=== PATIENT | female | born 1950 | race Caucasian/White ===

== ENCOUNTER 2021-01-10 10:38 | Outpatient (REF) | payer MEDICARE, OTHER, SELFPAY ==
[2021-01-10 12:11] LABS: Alanine Aminotransferase 17 U/L (0-31); Anion Gap 11 (12-20); Blood Urea Nitrogen 12 mg/dL (9-16); Carbon Dioxide 30 mmol/L (22-29); Chloride 100 mmol/L (96-108); Estimated Glomerular Filt Rate > 60; Potassium 4.2 mmol/L (3.3-5.1); Sodium 137 mmol/L (135-145)
== END 2021-01-10 10:39 | disposition home or self-care (01) ==
LOC: HO.LAB 10:38
PROVIDERS: PCP Family Medicine; Visit Provider Family Medicine
DX: I10 Essential (primary) hypertension (principal); E78.00 Pure hypercholesterolemia, unspecified; Z79.899 Other long term (current) drug therapy
CPT/HCPCS: 36415; 80051; 82550; 82565; 84460; 84520

== ENCOUNTER 2021-03-23 06:55 | Day surgery (SDC) | payer MEDICARE, OTHER, SELFPAY ==
[2021-03-19 14:24] VITALS: BMI 16.9
--- NOTE | 2021-03-22 08:19 | P.CONAN_ITS ---
Documented by User: Sole Will NP 03/22/21 08:21 HPI - Anesthesia Eval Consult details Narrative: 70yo F for Colonoscopy [facility] Past Medical History Medical History Elevated cholesterol Hemorrhoids HTN (hypertension) Low back pain Surgical History Surgical History Hx of rhinoplasty Social History Social History Patient Tobacco Use Status: Former Tobacco user Quit Date: Are you DNR?: No Advance Directives: No Advance Directives Information Provided: No Advance Directives on File: No Meds Allergies Allergy/AdvReac Type Severity Reaction Status Date / Time Penicillins Allergy Hives Verified 03/19/21 14:23 Home Medications Medication Instructions Recorded Confirmed Last Taken Type atenolol 50 mg tablet 1 tab PO DAILY 03/19/21 03/19/21 03/23/21 History atorvastatin 40 mg tablet 1 tab PO DAILY 03/19/21 03/19/21 Unknown History co [id number] oil-omega 3-E 03/19/21 03/19/21 Unknown History lisinopril 10 mg tablet 15 mg PO DAILY 03/19/21 03/19/21 Unknown History Exam Exam Date and Time: March 22, 2021 0819 Height,Weight and Vital Signs: Height 5 ft 1 in Weight 40.823 kg Pertinent Lab Results Pertinent Lab Results: Laboratory Tests 01/11/20 01/10/21 09:48 10:46 WBC 5.0 Hgb 12.4 Hct 39.4 Plt Count 202 Sodium 137 Potassium 4.2 Chloride 100 Carbon Dioxide 30 H BUN 12 Creatinine 0.88 Assessment and Plan Assessment Anesthesia Assessment: Chart Reviewed Documented by User: Jessica Roman MD 03/23/21 07:44 [facility] Past Medical History Medical History Elevated cholesterol Hemorrhoids HTN (hypertension) Low back pain Family History Family history of problems with anesthesia: No Surgical History Surgical History Hx of rhinoplasty History of Problems with Anesthesia: No Social History Social History Patient Tobacco Use Status: Former Tobacco user Quit Date: Are you DNR?: No Advance Directives: No Advance Directives Information Provided: No Advance Directives on File: No Meds Allergies Allergy/AdvReac Type Severity Reaction Status Date / Time Penicillins Allergy Hives Verified 03/19/21 14:23 Home Medications Medication Instructions Recorded Confirmed Last Taken Type atenolol 50 mg tablet 1 tab PO DAILY 03/19/21 03/19/21 03/23/21 History atorvastatin 40 mg tablet 1 tab PO DAILY 03/19/21 03/19/21 Unknown History co [id number] oil-omega 3-E 03/19/21 03/19/21 Unknown History lisinopril 10 mg tablet 15 mg PO DAILY 03/19/21 03/19/21 Unknown History Exam Airway TM Dist: <=3cm Neck ROM: Limited Assessment and Plan Assessment Anesthesia Assessment: Anesthesia Plan Discussed Final Anesthetic Review Family History of Problems with Anesthesia: No History of Problems with Anesthesia: No NPO: Yes ASA Class: II Final Preanesthetic Review: No Changes in Pt Med Stat, Meds/Allgs Chart Reviewed, Consent Obtained/Reviewed and Anes Risks/Benef Reviewed Patient Risk: Low Procedure Risk: Low Assessment/Block/Sedation in SS: Assess/Block/Sedation-SS Anesthetic Plan Anesthetic Plan: MAC: Disposition: Standard PACU
[2021-03-23 07:12] VITALS: BP 171/99; PULSE 66; RESP 18; TEMP 36.6; O2SAT 98
[2021-03-23] MEDS: Lactated Ringers 1,000 ML 100 ML IVCONT (07:33)
[2021-03-23 09:02] VITALS: BP 112/64; PULSE 63; RESP 16; TEMP 36.2; O2SAT 100
--- NOTE | 2021-03-23 09:04 | PM.OP ---
Brief Operative Note Date of Service: 03/23/21 Pre-op diagnosis: + Cologuard Post-op diagnosis: other (Int/Ext Hemorrhoids, Diverticulosis) Procedure: Colonoscopy to the cecum Surgeon: Matt Cash Anesthesia: MAC Was an Mental Health Worker used for this Procedure?: No Estimated blood loss (mL): 0 Pathology: none sent Condition: stable Disposition: PACU
[2021-03-23 09:17] VITALS: BP 115/57; PULSE 64; RESP 16; O2SAT 99
--- NOTE | 2021-03-23 09:31 | OP_ITS ---
SURGEON: Matt Cash MD INDICATIONS: The patient presents for evaluation of positive Cologuard test. Full consent has been obtained from her for this, including risks of bleeding and perforation. PREOPERATIVE DIAGNOSIS: Positive Cologuard test. POSTOPERATIVE DIAGNOSIS: PROCEDURE PERFORMED: Colonoscopy to cecum. ESTIMATED BLOOD LOSS: COMPLICATIONS: ANESTHESIA: Monitored anesthesia care. ASSISTANTS: SPECIMENS: POSTOPERATIVE DIAGNOSES: Positive Cologuard test, diverticulosis and internal and external hemorrhoids. DESCRIPTION OF PROCEDURE: The patient was placed in the left lateral decubitus position. The digital rectal exam revealed some external hemorrhoidal tissue. The Olympus video pediatric colonoscope was entered into the rectum and advanced easily to the cecum. Once in the cecum, I did identify normal-appearing cecal pouch with appendiceal orifice and a normal-appearing ileocecal valve. The entire cecum and ileocecal valve appeared normal. There was transillumination of light deep in the right lower quadrant. The scope was slowly withdrawn assessing all mucosal surfaces carefully. Preparation was excellent. I did not visualize any sign of polyps, colitis, nor angiodysplasia. There was a mild amount of sigmoid diverticulosis. In the rectum, scope was retroflexed visualizing prominent internal hemorrhoidal tissue but no other pathology. The scope was straightened and withdrawn from the patient. She tolerated the procedure well and was returned to the recovery area in stable condition. IMPRESSION: 1. Mild diverticulosis. 2. Internal and external hemorrhoids. PLAN: Given today's negative exam and her age, I do not think she will need any further screening colonoscopies. She will otherwise see me on a p.r.n. basis. MD MAYUR Turner/YESICA / [id number]
== END 2021-03-23 09:50 | disposition home or self-care (01) ==
PROVIDERS: PCP Family Medicine; Visit Provider Internal Medicine
PROC: 0DJD8ZZ Inspection of Lower Intestinal Tract, Via Natural or Artificial Opening Endoscopic (ICD-10-PCS; CPT 45378; principal; 2021-03-23 08:00)
DX: R19.5 Other fecal abnormalities (principal); K57.30 Diverticulosis of large intestine without perforation or abscess without bleeding; K64.4 Residual hemorrhoidal skin tags; K64.8 Other hemorrhoids; I10 Essential (primary) hypertension
CPT/HCPCS: 45378

== ENCOUNTER 2021-05-17 15:54 | Outpatient (REF) | payer MEDICARE, OTHER, SELFPAY ==
--- NOTE | ~2021-05-17 | MM_ITS ---
EXAMINATION: MM SCREENING DIGITAL BREAST TOMOSYNTHESIS, BILATERAL CLINICAL INFORMATION: Screening. Asymptomatic. The lifetime risk of breast cancer based on the Tyrer-Cuzick Model is 4%. COMPARISON: Mammography: 07/23/2012 TECHNIQUE: Digital breast tomosynthesis is performed in both the craniocaudal and mediolateral oblique views along with computer-aided detection (CAD). Synthesized 2D images are generated from the tomosynthesis. FINDINGS: The breasts are heterogeneously dense, which may obscure small masses (ACR BI-RADS breast composition Category c). There are no significant masses, abnormal calcifications, or other abnormalities. Parenchymal pattern is similar to prior remote exam. The axilla and skin contours are unremarkable. No significant changes. MM/MM tomosynthesis screening BI IMPRESSION: There are no significant changes from prior study. ASSESSMENT: BI-RADS 1: Negative RECOMMENDATION: Routine annual mammography screening. This patient's information was entered into a reminder system with a target due date for their next mammogram.
== END 2021-05-17 15:55 | disposition home or self-care (01) ==
LOC: HO.MAMMO 15:54
PROVIDERS: Visit Provider Family Medicine
DX: Z12.31 Encounter for screening mammogram for malignant neoplasm of breast (principal)
CPT/HCPCS: 77063; 77067

== ENCOUNTER 2021-10-11 10:37 | Outpatient (REF) | payer MEDICARE, OTHER, SELFPAY ==
[2021-10-11 12:03] LABS: Anion Gap 11 (12-20); Blood Urea Nitrogen 15 mg/dL (9-16); Carbon Dioxide 30 mmol/L (22-29); Chloride 100 mmol/L (96-108); Estimated Glomerular Filt Rate > 60; Potassium 4.1 mmol/L (3.3-5.1); Sodium 137 mmol/L (135-145)
== END 2021-10-11 10:38 | disposition home or self-care (01) ==
LOC: HO.LAB 10:37
PROVIDERS: PCP Family Medicine; Visit Provider Family Medicine
DX: I10 Essential (primary) hypertension (principal); E78.00 Pure hypercholesterolemia, unspecified; Z79.899 Other long term (current) drug therapy
CPT/HCPCS: 36415; 80051; 82565; 84520

== ENCOUNTER 2022-05-10 10:03 | Outpatient (REF) | payer MEDICARE, OTHER, SELFPAY ==
[2022-05-10 11:39] LABS: Alanine Aminotransferase 19 U/L (0-31); Anion Gap 14 (12-20); Blood Urea Nitrogen 14 mg/dL (9-16); Carbon Dioxide 28 mmol/L (22-29); Chloride 96 mmol/L (96-108); Estimated Glomerular Filt Rate 58; Potassium 4.4 mmol/L (3.3-5.1); Sodium 134 mmol/L (135-145)
== END 2022-05-10 10:04 | disposition home or self-care (01) ==
LOC: HO.LAB 10:03
PROVIDERS: PCP Family Medicine; Visit Provider Family Medicine
DX: I10 Essential (primary) hypertension (principal); E78.00 Pure hypercholesterolemia, unspecified; Z79.899 Other long term (current) drug therapy
CPT/HCPCS: 36415; 80051; 82550; 82565; 84460; 84520

== ENCOUNTER 2022-07-04 09:12 | Outpatient (REF) | payer MEDICARE, OTHER, SELFPAY ==
--- NOTE | ~2022-07-04 | MM_ITS ---
EXAMINATION: MM SCREENING DIGITAL BREAST TOMOSYNTHESIS, BILATERAL CLINICAL INFORMATION: Screening. Asymptomatic. The lifetime risk of breast cancer based on the Tyrer-Cuzick Model is 3%. COMPARISON: Mammography: 05/17/2021 and studies dating back to 03/15/2010. TECHNIQUE: Digital breast tomosynthesis is performed in both the craniocaudal and mediolateral oblique views along with computer-aided detection (CAD). Synthesized 2D images are generated from the tomosynthesis. FINDINGS: The breasts are heterogeneously dense, which may obscure small masses (ACR BI-RADS breast composition Category c). There is a stable parenchymal pattern of the left breast. Within the deep central aspect of the right breast on craniocaudal view, there is an asymmetric density for which spot compression view is recommended. No definite correlate is seen on mediolateral oblique image. MM/MM tomosynthesis screening BI IMPRESSION: Right breast asymmetric density for further evaluation. ASSESSMENT: BI-RADS 0: Incomplete - Need Additional Imaging Evaluation RECOMMENDATION: 1. Additional views of the right breast. 2. Targeted ultrasound if warranted after review of the additional views. 3. Radiology department staff will contact the patient for additional imaging. This patient's information was entered into a reminder system with a target due date for their next mammogram.
== END 2022-07-04 09:13 | disposition home or self-care (01) ==
LOC: HO.MAMMO 09:12
PROVIDERS: PCP Family Medicine; Visit Provider Family Medicine
DX: Z12.31 Encounter for screening mammogram for malignant neoplasm of breast (principal)
CPT/HCPCS: 77063; 77067

== ENCOUNTER 2022-07-09 07:47 | Outpatient (REF) | payer MEDICARE, OTHER, SELFPAY ==
--- NOTE | ~2022-07-09 | MM_ITS ---
EXAMINATION: MM DIAGNOSTIC DIGITAL BREAST TOMOSYNTHESIS, RIGHT CLINICAL INFORMATION: Recall from screening for question of asymmetric density posterior central right breast on CC view. COMPARISON: Mammography: 07/04/2022, 05/17/2021, 07/23/2012, 03/15/2010 TECHNIQUE: Digital breast tomosynthesis is performed. 2D images are generated from the tomosynthesis. The following views are obtained: Spot CC, CC, MLO. FINDINGS: The breasts are heterogeneously dense, which may obscure small masses (ACR BI-RADS breast composition Category c). There is denser parenchymal tissue composition in the anterior breasts, not the area of recall. Parenchymal pattern is similar to multiple prior exams. There is no developing density or interval mass or architectural abnormality. Results are discussed with the patient at time of visit. MM/MM tomosynthesis added views R IMPRESSION: -No mammographic evidence of malignancy. -No significant changes from multiple prior studies. ASSESSMENT: BI-RADS 1: Negative RECOMMENDATION: Routine annual mammography screening. This patient's information was entered into a reminder system with a target due date for their next mammogram.
== END 2022-07-09 07:48 | disposition home or self-care (01) ==
LOC: HO.MAMMO 07:47
PROVIDERS: PCP Family Medicine; Visit Provider Family Medicine
DX: R92.2 Inconclusive mammogram (principal)
CPT/HCPCS: 77061; 77065

== ENCOUNTER 2022-12-04 10:33 | Outpatient (REF) | payer MEDICARE, OTHER, SELFPAY ==
[2022-12-04 12:59] LABS: Alanine Aminotransferase 18 U/L (0-31); Anion Gap 10 (12-20); Aspartate Amino Transferase 26 U/L (5-31); Blood Urea Nitrogen 12 mg/dL (9-16); Carbon Dioxide 31 mmol/L (22-29); Chloride 103 mmol/L (96-108); Estimated Glomerular Filt Rate > 60; Potassium 4.3 mmol/L (3.3-5.1); Sodium 140 mmol/L (135-145)
== END 2022-12-04 10:34 | disposition home or self-care (01) ==
LOC: HO.LAB 10:33
PROVIDERS: PCP Family Medicine; Visit Provider Family Medicine
DX: I10 Essential (primary) hypertension (principal); E78.00 Pure hypercholesterolemia, unspecified; Z79.899 Other long term (current) drug therapy
CPT/HCPCS: 36415; 80051; 82550; 82565; 84450; 84460; 84520

== ENCOUNTER 2023-06-25 10:08 | Outpatient (REF) | payer MEDICARE, OTHER, SELFPAY ==
[2023-06-25 10:59] LABS: Anion Gap 12 (12-20); Blood Urea Nitrogen 11 mg/dL (9-16); Carbon Dioxide 27 mmol/L (22-29); Chloride 97 mmol/L (96-108); Estimated Glomerular Filt Rate > 60; Potassium 3.6 mmol/L (3.3-5.1); Sodium 132 mmol/L (135-145)
== END 2023-06-25 10:09 | disposition home or self-care (01) ==
LOC: HO.LAB 10:08
PROVIDERS: PCP Family Medicine; Visit Provider Family Medicine
DX: I10 Essential (primary) hypertension (principal)
CPT/HCPCS: 36415; 80051; 82565; 84520

== ENCOUNTER 2023-07-22 12:22 | Outpatient (REF) | payer MEDICARE, OTHER, SELFPAY ==
--- NOTE | ~2023-07-22 | MM_ITS ---
EXAMINATION: MM SCREENING DIGITAL BREAST TOMOSYNTHESIS, BILATERAL CLINICAL INFORMATION: Screening. Asymptomatic. COMPARISON: Mammography: This study is compared with prior exams dating back to 2020. TECHNIQUE: Digital breast tomosynthesis is performed in both the craniocaudal and mediolateral oblique views along with computer-aided detection (CAD). Synthesized 2D images are generated from the tomosynthesis. FINDINGS: The breasts are heterogeneously dense, which may obscure small masses (ACR BI-RADS breast composition Category c). There are no significant masses, abnormal calcifications, or other abnormalities. MM/MM tomosynthesis screening BI IMPRESSION: No mammographic evidence of malignancy. ASSESSMENT: BI-RADS BI-RADS 1 - Negative RECOMMENDATION: Routine annual mammography screening. 1 year F/U This examination should not preclude the clinical evaluation of a suspicious palpable abnormality. This patient's information was entered into a reminder system with a target due date for their next mammogram.
== END 2023-07-22 12:23 | disposition home or self-care (01) ==
LOC: HO.MAMMO 12:22
PROVIDERS: PCP Family Medicine; Visit Provider Family Medicine
DX: Z12.31 Encounter for screening mammogram for malignant neoplasm of breast (principal)
CPT/HCPCS: 77063; 77067

== ENCOUNTER → 2023-07-22 12:45 | Outpatient (BNV) | payer MEDICARE, OTHER, SELFPAY | PROVIDERS: PCP Family Medicine; Visit Provider Radiology Diagnostic Radiology | DX: Z12.31 Encounter for screening mammogram for malignant neoplasm of breast (principal) | CPT/HCPCS: 77063; 77067 ==

== ENCOUNTER 2023-12-13 10:14 | Outpatient (REF) | payer MEDICARE, OTHER, SELFPAY ==
[2023-12-13 11:45] LABS: Alanine Aminotransferase 19 U/L (0-31); Anion Gap 12 (12-20); Aspartate Amino Transferase 28 U/L (5-31); Carbon Dioxide 29 mmol/L (22-29); Chloride 102 mmol/L (96-108); Estimated Glomerular Filt Rate > 60; Potassium 4.2 mmol/L (3.3-5.1); Sodium 139 mmol/L (135-145)
[2023-12-13 12:01] LABS: Blood Urea Nitrogen 14 mg/dL (9-16)
== END 2023-12-13 10:15 | disposition home or self-care (01) ==
LOC: HO.LAB 10:14
PROVIDERS: PCP Family Medicine; Visit Provider Family Medicine
DX: I10 Essential (primary) hypertension (principal); E78.00 Pure hypercholesterolemia, unspecified
CPT/HCPCS: 36415; 80051; 82550; 82565; 84450; 84460; 84520

== ENCOUNTER 2024-03-15 14:15 | Outpatient (REF) | payer MEDICARE, OTHER, SELFPAY ==
--- NOTE | ~2024-03-15 | XR_ITS ---
EXAMINATION: XR HAND, RIGHT CLINICAL INFORMATION: Right fourth trigger finger COMPARISON: None available. TECHNIQUE: PA, lateral, and oblique views of the right hand. FINDINGS: Bones have normal alignment throughout the right hand and wrist. No acute fracture or subluxation. Bones appear to be diffusely osteopenic. At the mildly degenerated thumb metacarpophalangeal joint, there is irregular narrowing of joint space and small osteophytes. At the third MCP joint, there is moderate-to severe joint space loss and osteophyte formation. Irregular joint space narrowing and prominent marginal osteophytes of the osteoarthritic 5th DIP joint. Severe loss of joint space, subarticular sclerosis and osteophytes of 3rd and 4th DIP joints. Due to the severity of joint space loss, consider possibility of inflammatory osteoarthritis. Difficult to exclude any partial ankylosis at the 4th DIP. XR/XR hand RT 2V IMPRESSION: * No acute osseous injury in the right hand or wrist. 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 The arthritis is severe at the 3rd, 4th and 5th DIP joints. Consider possibility of an inflammatory component of the osteoarthritis at the 3rd and 4th DIP joints (? chronic indolent inflammatory osteoarthritis).
== END 2024-03-15 14:16 | disposition home or self-care (01) ==
LOC: HO.XRAY 14:15
PROVIDERS: Visit Provider Family Medicine
DX: M65.341 Trigger finger, right ring finger (principal)
CPT/HCPCS: 73120

== ENCOUNTER 2024-06-02 09:29 | Outpatient (REF) | payer MEDICARE, OTHER, SELFPAY ==
[2024-06-02 11:46] LABS: Anion Gap 10 (12-20); Blood Urea Nitrogen 14 mg/dL (9-16); Carbon Dioxide 29 mmol/L (22-29); Chloride 101 mmol/L (96-108); Estimated Glomerular Filt Rate > 60; Potassium 4.4 mmol/L (3.3-5.1); Sodium 136 mmol/L (135-145)
== END 2024-06-02 09:30 | disposition home or self-care (01) ==
LOC: HO.LAB 09:29
PROVIDERS: PCP Family Medicine; Visit Provider Family Medicine
DX: I10 Essential (primary) hypertension (principal)
CPT/HCPCS: 36415; 80051; 82565; 84520

== ENCOUNTER 2024-10-08 08:53 | Outpatient (REF) | payer MEDICARE, OTHER, SELFPAY ==
--- OUTSIDE RECORDS SUMMARY | 2024-10-08 09:14 | XMS_ITS | Patient Health Record ---
Author Organization [facility] Address [address] [place] [id number] Care Team Providers Care Field Sales Agent Name Role Phone Milo TORRES, Sreedhar Primary Care Provider UnavailMatt Santoro [phone] Allergies Allergen (clinical drug ingredient) Drug/Non Drug Allergy documented on EMR Reaction Allergy Type Onset Date Status Penicillin hives Drug Allergy Active Reason For Referral No Information Medications Medication SIG (Take, Route, Frequency, Duration) Notes Start Date End Date Status Co Q 10 100 MG as directed Orally o nce a day 09/25/2020 Active Lisinopril 10 MG one and half tables Orally Once a day Active Atenolol 50 MG 1 tablet Oral Once a day Active Atorvastatin Calcium 40 MG Oral for 90 Active Multivitamin Adult - 1 tablet Orally caryl ry other day Active Immunizations Vaccine Route Administration Date Status Comme nts Influenza Unknown 02/26/2020 Administered Social History Tobacco Use: Social History Observation Description Date Details (start date - stop date) Never Smoker NA - NA Tobacco Use/Smoking Question Answer Notes Patient is a nonsmoker Alcohol Screen Question Answer Notes Did you have a drink containing alcohol in the p ast year? No Points 0 Interpretation Negative Section Notes: Nonsmoker; no sig. alcohol Problems Problem Type SNOMED Code ICD Code Onset Dates Problem Status W/U Status Risk Notes Problem Diverticular disease of colon (764762861) Diverticular disease of colon (K57.30) Active confirmed Problem 777919913 Positive colorectal cancer screening using Cologuard test (R19.5) Active confirmed Plan Of Treatment Future Test Test Name Order Date COLONOSCOPY 02/20/2021 Insurance Providers Payer Name Payer Address Payer Phone Subscriber Number Group Number Insured Name Patient Relationship to Insured Coverage Start Date Coverage End Date MEDICARE OF [employer] [address] [place] [address] [id number] BENJAMIN DAVIS Self - patient is the insured [facility] [employer] [address] [place] [address] [id number] BENJAMIN DAVIS Self - patient is the insured Medical (General) History Medical History History ICD Code Hypertension Denies [place],DM,CVA,Lung disease,renal dise ase Hyperlipidemia Surgical History Surgery Date(Month/Year) Rhinoplasty 1966
== END 2024-10-08 08:54 | disposition home or self-care (01) ==
LOC: HO.MAMMO 08:53
PROVIDERS: PCP Family Medicine; Visit Provider Family Medicine
DX: Z12.31 Encounter for screening mammogram for malignant neoplasm of breast (principal)
CPT/HCPCS: 77063; 77067

== ENCOUNTER → 2024-10-08 09:15 | Outpatient (BNV) | payer MEDICARE, OTHER, SELFPAY | PROVIDERS: PCP Family Medicine; Visit Provider Internal Medicine | DX: Z12.31 Encounter for screening mammogram for malignant neoplasm of breast (principal) | CPT/HCPCS: 77063; 77067 ==

== ENCOUNTER 2025-01-12 11:39 | Outpatient (REF) | payer MEDICARE, OTHER, SELFPAY ==
[2025-01-12 13:26] LABS: Alanine Aminotransferase 21 U/L (0-31); Anion Gap 10 (12-20); Aspartate Amino Transferase 31 U/L (5-31); Blood Urea Nitrogen 12 mg/dL (9-16); Carbon Dioxide 29 mmol/L (22-29); Chloride 105 mmol/L (96-108); Estimated Glomerular Filt Rate 58; Potassium 4.4 mmol/L (3.3-5.1); Sodium 140 mmol/L (135-145)
--- OUTSIDE RECORDS SUMMARY | 2025-01-12 13:41 | XMS_ITS | Patient Health Record ---
Author Organization [facility] Address [address] [place] [id number] Care Team Providers Care Wildlife Science Professor Name Role Phone Milo TORRES, Sreedhar Primary Care Provider UnavailMatt Santoro [phone] Allergies Allergen (clinical drug ingredient) Drug/Non Drug [...] Risk Notes Problem Diverticular disease of colon (K57.30) Active confirmed Problem 830713211 Positive colorectal cancer screening using Cologuard test (R19.5) Active confirmed Plan Of Treatment Future Test Test Name Order Date COLONOSCOPY 02/20/2021 Insurance Providers Payer Name Payer Address Payer Phone Subscriber Number Group Number Insured Name Patient Relationship to Insured Coverage Start Date Coverage End Date MEDICARE OF [facility] [address] MYA LEZAMA [id number] [phone] [id number] BENJAMIN DAVIS Self - patient is the insured FOR [employer] [address] [place] [address] [id number] BENJAMIN DAVIS Self - patient is the insured Medical (General) History Medical History History ICD Code Hypertension Denies [place],DM,CVA,Lung disease,renal dise ase Hyperlipidemia Surgical History Surgery Date(Month/Year) Rhinoplasty 1966
== END 2025-01-12 11:40 | disposition home or self-care (01) ==
LOC: HO.10HDL 11:39
PROVIDERS: Visit Provider Family Medicine
DX: I10 Essential (primary) hypertension (principal); E78.00 Pure hypercholesterolemia, unspecified; Z79.02 Long term (current) use of antithrombotics/antiplatelets
CPT/HCPCS: 36415; 80051; 82550; 82565; 84450; 84460; 84520

== ENCOUNTER 2025-07-06 11:05 | Outpatient (AMB) | payer MEDICARE, OTHER, SELFPAY ==
--- NOTE | 2025-07-06 11:13 | A.OFFPC_ITS ---
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: No Accompanied by: Self / Same As Patient Allergies Penicillins Allergy (Verified 07/06/25 11:26) Hives Medication List - Last Reconciled 07/06/25 by Jeff Mccray MD atorvastatin 40 mg PO DAILY lisinopril 15 mg PO DAILY metoprolol succinate ER 50 mg PO BEDTIME Tobacco use date assessed: 07/06/25 Fall risk assessment: No Falls in past year Last assessed Fall Risk: 07/06/25 Dental Screening Dental Screen Date: 07/06/25 Did you have a dental visit in the last 12 months?: Yes Did you have a dental problem in the last 6 months where you did not have access to dental care?: No HPI HPI Comments History of Present Illness Details History of Present Illness The patient is a 75 year old female presenting for management of high blood p ressure and high cholesterol. She is currently taking lisinopril 15 mg and metoprolol succinate 50 mg for hypertension, and atorvastatin 40 mg for hypercholesterolemia. She also takes a CoQ10 supplement. The patient's BMI is 16, which is classified as underweight, and she reports a history of being around 90 pounds for many years. She states she eats three meals a day, plus dessert, but has lost weight after a recent cruise and eats very little. Past medical history includes hemorrhoids. Her surgical history is notable for cataract surgery in both eyes. She has a history of penicillin allergy, which manifested as hives in childhood, and she has not taken it since. She reports lactose intolerance to cream, including ice cream, which causes her to have multiple bowel movements, but she can tolerate milk, cheese, and yogurt. She has tried liav-jie-zufxzep lactase, which helped with symptoms when eating ice cream. For health maintenance, her last mammogram was in September of the current year, and she has an appointment for her next one. Her last colonoscopy was in 2020, and she was told she did not need another due to her age. Medical History: - Hypertension - Hypercholesterolemia - Penicillin allergy, manifesting as hiv es in childhood - Lactose intolerance - Hemorrhoids - Underweight (BMI 16) Surgical History: - Cataract surgery, bilateral Medications: - Lisinopril 15 mg for hypertension - Metoprolol succinate 50 mg for hyperte nsion - Atorvastatin 40 mg for high cholestero l - CoQ10 supplement Family History: - Parents had high blood pressure. - Denies family history of heart disease , diabetes, or cancer. Diagnostic Results: - Tests: Mammogram performed in September of this year was noted. - Diagnostics: Colonoscopy was performed in 2020. Social History - Substance Use: Denies current alcohol use or illicit drug use, including marijuana, heroin, and cocaine. - Tobacco Use: Reports smoking a little in college but denies current use. - Nutritional Intake: Patient reports ea ting three meals a day with dessert, but her intake is described as very little. - Weight Management: Patient is underwei ght with a BMI of 16. [facility] Medical History (Updated 07/06/25 @ 12:09 by Jeff Mccray MD) Annual physical exam Hyperlipidemia Underweight (BMI < 18.5) Low back pain Hemorrhoids Elevated cholesterol HTN (hypertension) Surgical History History of colonoscopy (~03/23/21) Hx of rhinoplasty Family History (Updated 07/06/25 @ 11:28 by Nicolasa Goddard MA) Mother No problems noted. Father No problems noted. Social History Housing: Condominium Patient Tobacco Use Status: Never used Tobacco e-Cigarette/Vaping Use: Never Used service: No Cognitive needs: No Hearing needs: No Vision needs: Yes (reading glasses) Questionnaire PHQ-9 Over the last 2 weeks, how often have you been bothered by any of the following problems? 1. Little interest or pleasure in doing things: not at all 2. Feeling down, depressed, or hopeless: not at all 3. Trouble falling or staying asleep, or sleeping too much: not at all 4. Feeling tired or having little energy: not at all 5. Poor appetite or overeating: not at all 6. Feeling bad about yourself - or that you are a failure or have let yourself or your family down: not at all 7. Trouble concentrating on things, such as reading the newspaper or watching television: not at all 8. Moving or speaking so slowly that other people could have noticed. Or the opposite - being so fidgety or restless that you have been moving around a lot m ore than usual: not at all 9. Thoughts that you would be better off or of hurting yourself in some way: not at all Total score: 0 Depression Screening Interpretation: Negative Depression Screening Done: Yes 25542 - PHQ-9 Billing: Yes Source: Developed by Drs. Matt Angel, Vania Welsh, Mumtaz Henry and colleagues, with an educational zahida from [employer]. Thrive Questionnaire Date Thrive assessed: 07/06/25 I am a: Patient What is your living situation today?: I have a steady place to live Within the past 12 months, did the food you bought not last and you didn't have the money to get more?: Never true Within the past 12 months, did you worry whether your food would run out before you got money to buy more?: Never true Do you have trouble paying for medicines?: No Do you have trouble getting transportation to medical appointments?: No Do you have trouble paying your heating and electricity bill?: No Do you have trouble taking care of your child, family member or friend?: No Do you have trouble with day-to-day activities such as bathing, preparing meals, shopping, managing finances, etc.?: No Are you currently unemployed and looking for a job?: No Are you interested in more education?: No THRIVE Score: 0 AUDIT C Alcohol Use Questionnaire (AUDIT-C) 1. How often do you have a drink containing alcohol?: Never 3. How often do you have six or more drinks on one occasion?: Never Total Score: 0 Score Reviewed/Action Taken: Yes CLAUDIA-7 AMB Questionnaire CLAUDIA-7 Date CLAUDIA - 7 assessed: 07/06/25 Feeling nervous, anxious, or on edge: 0 = Not at all Not being able to stop or control worryin = Not at all Worrying too much about different things: 0 = Not at all Trouble relaxin = Not at all Being so restless that it is hard to sit still: 0 = Not at all Becoming easily annoyed or irritable: 0 = Not at all Feeling afraid as if something awful might happen: 0 = Not at all Total CLAUDIA-7 score (0-4 normal; 5-9 mild; 10-14 moderate; 15-21 severe): 0 Source: Developed by Drs. Matt Angel, Vania Welsh, Mumtaz Henry and colleagues, with an educational zahida from [employer]. CLAUDIA-7 Assessment Billing CLAUDIA-7 Assessment Tool: CLAUDIA-7 Assessment 75815 Review of Systems Narrative Review of Systems - General: Denies any complaints or concerns at the start of the visit. - Gastrointestinal: Reports normal urination and bowel movements, except when consuming cream, which induces 4-5 bowel movements. - She denies nausea or vomiting. - Reports having hemorrhoids. - Musculoskeletal: Denies any swelling or pain. All systems reviewed & are unremarkable except as reviewed in HPI and above Physical exam (Primary Care) Vital Signs: Last Vital Signs Temp 97.9 F 07/06/25 11:15 Pulse 67 07/06/25 11:15 BP 140/90 H 07/06/25 11:15 Pulse Ox 100 07/06/25 11:15 Oxygen Delivery Method Room Air 07/06/25 11:15 BMI result Body Mass Index 16.6 Tobacco/Smoking Status: Tobacco use Status Tobacco use date assessed 07/06/25 07/06/25 11:31 Patient Tobacco Use Status Never used Tobacco 07/06/25 11:31 e-Cigarette/Vaping Use Never Used 07/06/25 11:31 PHQ-9: PHQ-9 Score PHQ-9: Total score 0 07/06/25 11:35 Depression Screening Interpretation: Negative Thrive Assessment: Date of Thrive Assessment Date Thrive assessed 07/06/25 07/06/25 11:31 Narrative Physical Exam General: +Alert and oriented, Well nourished, No acute distress. Eye: Pupils are equal, round and reactive to light, Intact accommodation, Extraocular movements are intact, Normal conjunctiva, Vision unchanged. HENT: Normocephalic, Atraumatic, Tympanic membranes are clear, Normal hearing, Oral mucosa is moist, No pharyngeal erythema, Ear canals patent. Respiratory: Lungs CTA bilaterally, No wheeze, Respirations are non-labored. Cardiovascular: Regular rate, Regular rhythm, S1 auscultated, S2 auscultated, No murmur, Good pulses equal in all extremities, Normal peripheral perfusion, No edema. Gastrointestinal: Soft, Non-tender, Non-distended, Normal bowel sounds, No organomegaly. Musculoskeletal: Normal range of motion, Normal strength, No tenderness, No swelling, No deformity, Normal gait. Integumentary: Warm, Dry, [place], Intact. Neurologic: Alert, Oriented, Normal sensory, Normal motor function, No focal defects, Cranial Nerves II-XII are grossly intact, Normal deep tendon reflexes. Psychiatric: Cooperative, Appropriate mood & affect, Normal judgment. Coding Level of Care Code New Pt Level 4 (65212) New Pt Prev Care >65yr (59325) Diagnoses Underweight (BMI < 18.5) R63.6; Z68.1 Primary hypertension I10 Hypertension type: primary hypertension Other hyperlipidemia E78.49 Hyperlipidemia type: other hyperlipidemia Annual physical exam Z00.00 Additional Codes CLAUDIA-7 Assessment Billing - CLAUDIA-7 Assessment Tool: CLAUDIA-7 Assessment 34245 ([id number]) PHQ-9 - 21313 - PHQ-9 Billing: Yes ([id number]) Comment [id number] Assessment & Plan Assessment & Plan (1) Underweight (BMI < 18.5): Comment: - The patient has a BMI of 16. - It was recommended that she supplement her diet with Ensure three times a day in addition to her regular meals to help increase her weight. - While the patient was hesitant, she was encouraged to try the supplement. Code(s): R63.6 - Underweight; Z68.1 - Body mass index [BMI] 19.9 or less, adult Category: Medical (2) HTN (hypertension): Comment: - The patient's chronic conditionis managed with lisinopril, metoprolol - Routine blood work including electrolytes, cholesterol panel, and thyroid function tests will be ordered to monitor her conditions. Code(s): I10 - Essential (primary) hypertension Category: Medical Qualifiers: Hypertension type: primary hypertension Qualified Code(s): I10 - Essential (primary) hypertension (3) Hyperlipidemia: Comment: - The patient's chronic conditionis managed with atorvastatin - Routine blood work including electrolytes, cholesterol panel, and thyroid function tests will be ordered to monitor her conditions. Code(s): E78.5 - Hyperlipidemia, unspecified Category: Medical Qualifiers: Hyperlipidemia type: other hyperlipidemia Qualified Code(s): E78.49 - Other hyperlipidemia (4) Annual physical exam: Comment: - Given her last colonoscopy was in 2020, a Cologuard stool test for colon cancer screening will be ordered. - The test kit will be mailed to her home for her to complete and mail back. - She has a follow-up mammogram scheduled. Code(s): Z00.00 - Encounter for general adult medical examination without abnormal findings Category: Medical Plan: Health Maintenance: - Breast Cancer Screening: The patient had a mammogram in September of the current year and has an appointment for her next one in September of the following year. - Colorectal Cancer Screening: Her last colonoscopy was in 2020 and she was told no more were required. - A Cologuard stool test will be ordered for continued screening. - Weight Management: The patient is underweight with a BMI of 16 and was advised to supplement her meals with Ensure shakes three times daily. - General Health Screening: Comprehensive blood work was ordered, including electrolytes, sugar levels, cholesterol, vitamin D, thyroid function, and screening for hepatitis, HIV, and syphilis. Patient was informed and verbally consented to the use of an ambient scribe for clinic note documentation during this visit. Vital signs reviewed. Comprehensive history, review of systems, and physical exam completed. Medications, allergies, and problem list reviewed and updated. Counseling provided on nutrition, regular exercise, sleep hygiene, and moderation of alcohol use. Discussed age-appropriate screenings (mammogram, colonoscopy, Pap, bone density) and immunizations (flu, COVID, shingles, Tdap). Screened for depression, fall risk, and home safety; no current concerns. Discussed stress management, dental and vision care, and importance of ongoing preventive follow-up. Routine labs ordered for metabolic and lipid screening. Patient educated on healthy lifestyle and agrees with the plan. Plan I reviewed the patient's current medications for hypertension and high cholesterol. We discussed her low weight and BMI of 16, and I recommended supplementing her diet with Ensure three times a day to help with weight gain, explaining that it is a safe protein supplement. Although she was hesitant, I encouraged her to try it. I explained the plan for continued colorectal cancer screening with a Cologuard test, which would be mailed to her home, as a preventative measure despite her previous clear colonoscopy. I ordered extensive blood work and informed her that the results would be available on the patient portal, and I would message her with any explanations if needed. I advised her to proceed to the lab for the blood draw and planned for a follow-up in six months. Orders: Orders Complete Blood Count Auto Diff Today Z00.00 - Encounter for general adult medical examination without abnormal findings Comprehensive Met. Panel Today Z00.00 - Encounter for general adult medical examination without abnormal findings HIV Ab/Ag Today Z00.00 - Encounter for general adult medical examination without abnormal findings Lipid Panel Today Z00.00 - Encounter for general adult medical examination without abnormal findings TSH reflex Free T4 Today Z00.00 - Encounter for general adult medical examination without abnormal findings Hemoglobin A1c Today Z00.00 - Encounter for general adult medical examination without abnormal findings Hepatitis A,B,C Profile Today Z00.00 - Encounter for general adult medical examination without abnormal findings Microalbumin, Random (w Creat) Today Z00.00 - Encounter for general adult medical examination without abnormal findings Syphilis Screen Today Z00.00 - Encounter for general adult medical examination without abnormal findings Vitamin D 25-OH Total Today Z00.00 - Encounter for general adult medical examination without abnormal findings Referrals Cologuard Test Z12.11 - Encounter for screening for malignant neoplasm of colon Patient Instructions: - Continue taking your current medications as prescribed: lisinopril 15 mg and metoprolol succinate 50 mg for blood pressure, and atorvastatin 40 mg for cholesterol. - To help you gain weight, please try to drink an Ensure shake with each of your three daily meals. - Please go to the lab to have your blood drawn today. - We have ordered a full set of tests to check your overall health. - A Cologuard kit for stool testing will be mailed to your home. - Please follow the instructions to collect the sample and mail it back. - We will send you a message on the patient portal to explain your lab results after they come in. - We will see you back in the office in about six months.
[2025-07-06 11:15] VITALS: BP 140/90; PULSE 67; TEMP 36.6; O2SAT 100; BMI 16.6
--- OUTSIDE RECORDS SUMMARY | 2025-07-06 17:23 | XMS_ITS | Patient Health Record ---
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 Name Role Phone Milo (RETIRED) Sreedhar TORRES Primary Care Provider Unavailable Matt Cash Unavailable [phone] Allergies Allergen (clinical drug ingredient) Drug/Non Drug Allergy documented on EMR Reaction Allergy Type Onset Date Status Penicillin hives Drug Allergy Active Reason For Referral No Information Medications Medication SIG (Take, Route, Frequency, Duration) Notes Start Date End Date Status Co Q 10 100 MG Capsule as directed Orall y once a day 09/25/2020 Active Lisinopril 10 MG Tablet one and half tab les Orally Once a day Active Atenolol 50 MG Tablet 1 tablet Oral Once a day Active Atorvastatin Calcium 40 MG Tablet Oral; Duration: 90 Active Multivitamin Adult - Tablet 1 tablet Ora lly every other day Active Immunizations Vaccine Route Administration Date Status Comme nts Influenza Unknown 02/26/2020 Administered Social History Tobacco Use: Social History Observation Description Date Details (start date - stop date) Never Smoker NA - NA Social History Drugs/Alcohol: Social Info Question Answer Notes Alcohol Screen Did you have a drink containing alcohol in the past year? 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 alcohol Problems Problem Type SNOMED Code ICD Code Onset Dates Problem Status W/U Status Risk Notes Problem Diverticular disease of colon (783152922) Diverticular disease of colon (K57.30) Active confirmed Problem Abnormal feces ([id number]) Positive colorectal cancer screening using Cologuard test (R19.5) Active confirmed Plan Of Treatment Future Test Test Name Order Date COLONOSCOPY 02/20/2021 Insurance Providers Payer Name Payer Address Payer Phone Subscriber Number Group Number Insured Name Patient Relationship to Insured Coverage Start Date Coverage End Date MEDICARE OF [place] [address] [place] [address] [id number] BENJAMIN DAVIS Self - patient is the insured [employer] [address] [place] [address] [phone] [id number] BENJAMIN DAVIS Self - patient is the insured Medical (General) History Medical History History ICD Code Hypertension Denies VT,DM,CVA,Lung disease,renal dise ase Hyperlipidemia Surgical History Surgery Date(Month/Year) Rhinoplasty 1966
== END 2025-07-06 12:07 | disposition home or self-care (01) ==
LOC: HO.HMCHD 11:06
PROVIDERS: PCP Family Medicine; Visit Provider Student in an Organized Health Care Education/Training Program
DX: I10 Essential (primary) hypertension (principal); R63.6 Underweight; Z68.1 Body mass index [BMI] 19.9 or less, adult; E78.49 Other hyperlipidemia

== ENCOUNTER 2025-07-06 12:09 | Outpatient (REF) | payer MEDICARE, OTHER, SELFPAY ==
[2025-07-06 13:06] LABS: MANUAL DIFF FLAG NO
[2025-07-06 13:08] LABS: Hematocrit 38.7 % (37.0-47.0); Hemoglobin 12.8 g/dl (12.0-16.0); Imm Gran Abs Auto 0.01 X10*3/uL (0.00-0.03); Imm Gran Pct Auto 0.2 % (0.0-0.4); Lymphocytes Absolute Auto 2.1 X10*3/uL (1.2-4.9); Mean Corpuscular HGB Conc 33.1 g/dl (31.0-35.0); Mean Corpuscular Hemoglobin 30.4 pg (27.0-33.0); Mean Corpuscular Volume 91.9 fL (80.0-98.0); NRBC Abs Auto 0.000 X10*3/uL (0.0-0.012); NRBC Pct Auto 0.0 /100WBC (0.0-0.2); Platelet Count 204 X10*3/uL (160-400); Red Blood Count 4.21 X10*6/uL (4.20-5.50); White Blood Count 6.1 X10*3/uL (4.8-10.8)
[2025-07-06 13:46] LABS: Alanine Aminotransferase 23 U/L (0-31); Albumin Level 4.7 g/dL (3.5-5.0); Alkaline Phosphatase 92 U/L (39-117); Anion Gap 9 (12-20); Aspartate Amino Transferase 37 U/L (5-31); Blood Urea Nitrogen 13 mg/dL (9-16); Calcium 9.5 mg/dL (8.4-10.2); Carbon Dioxide 31 mmol/L (22-29); Chloride 103 mmol/L (96-108); Cholesterol 143 mg/dL (<200); Estimated Glomerular Filt Rate > 60; HDL Cholesterol 72 mg/dL (>40); Potassium 4.2 mmol/L (3.3-5.1); Sodium 139 mmol/L (135-145); Total Protein 7.2 g/dL (6.5-8.0); Triglycerides 68 mg/dL (<150)
[2025-07-06 13:52] LABS: Microalbum/Creatinine Ratio Ur 49.2 ug/mg cr (<30)
[2025-07-07 04:17] LABS: Syphilis Screen Nonreactive (Nonreactive)
[2025-07-07 04:47] LABS: HBS Num1 0.00 mIU/mL (0-7.99); HBc Num1 0.06 S/CO (0.00-0.79); HBsAGNum1 0.34 S/CO (0.00-0.99); HIV Num 1 0.06 S/CO (0.00-0.99); Hepatitis A Antibody IgM 0.15 Index (0-0.79); Hepatitis B Surface Antigen Negative (Negative); ~HepC Num1 0.08 S/CO (0.00-0.79); ~Hepatitis A Antibody IgM Nonreactive (Nonreactive); ~Hepatitis B Surface Antibody NONREACTIVE (Nonreactive); ~Hepatitis C Antibody Nonreactive (Nonreactive)
== END 2025-07-06 12:10 | disposition home or self-care (01) ==
LOC: HO.10HDL 12:09
PROVIDERS: Visit Provider Student in an Organized Health Care Education/Training Program
DX: Z00.00 Encounter for general adult medical examination without abnormal findings (principal); Z13.6 Encounter for screening for cardiovascular disorders; Z11.4 Encounter for screening for human immunodeficiency virus [HIV]; Z13.1 Encounter for screening for diabetes mellitus; Z20.2 Contact with and (suspected) exposure to infections with a predominantly sexual mode of transmission; Z13.29 Encounter for screening for other suspected endocrine disorder; Z13.21 Encounter for screening for nutritional disorder
CPT/HCPCS: 36415; 80053; 80061; 82043; 82306; 82570; 83036; 84443; 85025; 86704; 86706; 86709; 86780; 86803; 87340; 87389